=== PATIENT | female | born 1975 | race Caucasian/White ===

== ENCOUNTER 2019-07-26 14:29 | Observation (INO) ==
[2019-07-26 16:47] VITALS: BMI 20.5
[2019-07-26] MEDS ORDERED: ZOFRAN INJ 4 MG VIAL IVP PRN (18:05)
[2019-07-26 18:29] LABS: BASOPHILS % (AUTO) 0.1 % (0.2-1.0); EOSINOPHILS % (AUTO) 0.2 % (0.9-2.9); HEMATOCRIT 40.9 % (36.0-47.0); LYMPHOCYTES # (AUTO) 1.5 X10^3/uL (1.3-2.9); LYMPHOCYTES % (AUTO) 9.3 % (21.0-51.0); MEAN CORPUSCULAR HEMOGLOBIN 30.2 pg (27.0-34.0); MEAN CORPUSCULAR HGB CONC 34.2 g/dL (33.0-35.0); MEAN CORPUSCULAR VOLUME 88.2 fL (80.0-100.0); MEAN PLATELET VOLUME 7.3 fL (7.4-11.0); MONOCYTES # (AUTO) 0.9 x10^3/uL (0.3-0.8); MONOCYTES % (AUTO) 5.6 % (0.0-13.0); NEUTROPHILS # (AUTO) 13.6 x10^3/uL (2.2-4.8); NEUTROPHILS % (AUTO) 84.8 % (42.0-75.0); PLATELET COUNT 356 X10^3/uL (150.0-450.0); RED BLOOD COUNT 4.64 X10^6/uL (3.5-5.4); RED CELL DISTRIBUTION WIDTH 12.9 % (11.6-16.5)
[2019-07-26 18:58] LABS: ALANINE AMINOTRANSFERASE 20 Units/L (12-78); ALBUMIN 4.1 g/dL (3.4-5.0); ALKALINE PHOSPHATASE 64 Units/L (46-116); ASPARTATE AMINO TRANSFERASE 19 Units/L (15-37); BLOOD UREA NITROGEN 11 mg/dL (7-18); CALCIUM 9.8 mg/dL (8.5-10.1); CHLORIDE 105 mmol/L (98-107); CKMB % 2.7 % (<4); CREATINE KINASE 64 Units/L (26-192); CREATINE KINASE MB 1.7 ng/mL (0-4.0); CREATININE 0.76 mg/dL (0.55-1.02); SODIUM 140 mmol/L (136-145); TOTAL PROTEIN 7.7 g/dL (6.4-8.2); TROPONIN I < 0.02 ng/mL (0-1.5); eGFR NON BLACK RACES > 60 (>60)
[2019-07-26] MEDS: NS 1000 ML 1,000 ML IV SCH (19:00)
--- NOTE | 2019-07-26 19:40 | RAD ---
HISTORY: Diarrhea Study: Frontal view of the chest, flat and upright views of the abdomen Comparison: None. Findings: Cardiomediastinal silhouette is normal in size. No focal consolidations, pleural effusions or pneumothorax. Osseous structures are without acute abnormality. Flat and upright views of the abdomen demonstrates a normal bowel gas pattern. No free air. No abnormal calcifications or abnormal soft tissue shadows. No acute bony abnormalities. IMPRESSION: 1. No acute cardiopulmonary disease. 2. No evidence for acute abdominal pathology. Reported By:
[2019-07-26 21:12] LABS: BILIRUBIN,URINE NEGATIVE (NEGATIVE); BLOOD/HEMOGLOBIN,URINE 1+ (NEGATIVE); GLUCOSE, URINE NEGATIVE (NEGATIVE); KETONES,URINE NEGATIVE (NEGATIVE); LEUKOCYTE ESTERASE ,URINE NEGATIVE (NEGATIVE); NITRITES,URINE NEGATIVE (NEGATIVE); PH,URINE 6.5 (5.0 - 8.0); PROTEIN,URINE 1+ (NEGATIVE); UROBILINOGEN,URINE NORMAL (NORMAL)
[2019-07-26 21:15] LABS: APPEARANCE,URINE CLEAR (CLEAR); COLOR,URINE YELLOW (YELLOW)
[2019-07-26 21:16] LABS: BACTERIA,URINE NEGATIVE /HPF (NEGATIVE); RBC,URINE 0-2 /HPF (0-3); SQUAMOUS EPITHELIAL CELL,UR FEW /HPF (NEGATIVE)
[2019-07-26 21:18] LABS: HYALINE CASTS, URINE FEW /LPF (NEGATIVE)
[2019-07-26 23:00] LABS: CKMB % 3.8 % (<4); CREATINE KINASE 115 Units/L (26-192); TROPONIN I < 0.02 ng/mL (0-1.5)
[2019-07-26 23:03] LABS: CRYPTOSPORIDIUM PARVUM ANTIGEN NEGATIVE (NEGATIVE); GIARDIA LAMBLIA ANTIGEN NEGATIVE (NEGATIVE)
[2019-07-26 23:06] LABS: CREATINE KINASE MB 4.4 ng/mL (0-4.0)
[2019-07-27 02:27] LABS: CKMB % 2.8 % (<4); CREATINE KINASE 39 Units/L (26-192); CREATINE KINASE MB 1.1 ng/mL (0-4.0); TROPONIN I < 0.02 ng/mL (0-1.5)
[2019-07-27] MEDS: NS 1000 ML 1,000 ML IV SCH ×2 (03:42→11:51)
[2019-07-27 05:16] LABS: BASOPHILS # (AUTO) 0.1 X10^3/uL (0.0-0.1); BASOPHILS % (AUTO) 0.5 % (0.2-1.0); EOSINOPHILS # (AUTO) 0.1 x10^3/uL (0.0-0.2); EOSINOPHILS % (AUTO) 0.7 % (0.9-2.9); HEMATOCRIT 36.8 % (36.0-47.0); HEMOGLOBIN 12.5 g/dL (12.0-16.0); LYMPHOCYTES # (AUTO) 2.1 X10^3/uL (1.3-2.9); MEAN CORPUSCULAR HEMOGLOBIN 30.4 pg (27.0-34.0); MEAN CORPUSCULAR HGB CONC 34.1 g/dL (33.0-35.0); MEAN CORPUSCULAR VOLUME 89.3 fL (80.0-100.0); MEAN PLATELET VOLUME 7.6 fL (7.4-11.0); MONOCYTES # (AUTO) 0.5 x10^3/uL (0.3-0.8); MONOCYTES % (AUTO) 5.3 % (0.0-13.0); NEUTROPHILS # (AUTO) 7.2 x10^3/uL (2.2-4.8); NEUTROPHILS % (AUTO) 72.5 % (42.0-75.0); PLATELET COUNT 270 X10^3/uL (150.0-450.0); RED BLOOD COUNT 4.12 X10^6/uL (3.5-5.4); WHITE BLOOD COUNT 9.9 X10^3/uL (3.6-10.0)
[2019-07-27 05:30] LABS: ALANINE AMINOTRANSFERASE 17 Units/L (12-78); ALBUMIN 3.1 g/dL (3.4-5.0); ALKALINE PHOSPHATASE 46 Units/L (46-116); ASPARTATE AMINO TRANSFERASE 15 Units/L (15-37); BLOOD UREA NITROGEN 14 mg/dL (7-18); CALCIUM 8.6 mg/dL (8.5-10.1); CARBON DIOXIDE 28.3 mmol/L (21-32); CHLORIDE 109 mmol/L (98-107); COR CA(FOR HYPOALB) 9.3 mg/dL (8.5-10.1); CREATININE 0.75 mg/dL (0.55-1.02); SODIUM 142 mmol/L (136-145); TOTAL PROTEIN 5.9 g/dL (6.4-8.2); eGFR NON BLACK RACES > 60 (>60)
--- NOTE | 2019-07-27 10:28 | DR.CARTERS ---
Short Stay Summary - Admission Date Date of Admission: 07/26/19 - Discharge Date Discharge Date: 07/27/19 - Admission Diagnoses (1) Dizziness Status: Acute (2) Nausea and vomiting Status: Acute (3) Diarrhea Status: Acute - Hospital Course Hospital Course: PRESENTED TO THE OFFICE WITH COMPLAINTS SEVERE DIZZINESS, NAUSEA, VOMITING, AND DIARRHEA. SHE HAD BEEN TAKING MECLIZINE AT HOME WITHOUT IMPROVEMENT IN SYMPTOMS. SHE WAS ADMITTED FOR FURTHER EVALUATION AND TREATMENT. ON ARRIVAL, VITALS WERE 98.2-96-18-98%-119/82. LABS WERE OBTAINED. ABNORMAL LAB VALUES INCLUDE THE FOLLOWING: WBC 16.0, C-DIFF TOX B GENE POSITIVE. URINALYSIS IS NEGATIVE. URINE AND STOOL CULTURES ARE PENDING. AN ABDOMINAL CT WS OBTAINED AND REVEALED: No acute cardiopulmonary disease. No evidence for acute abdominal pathology. EKG REVEALED: SINUS RHYTHM WITH HR 82. WE PLAN TO OBTAIN A BRAIN CT. WE STARTED NORMAL SALINE AT 125ML/HR AND ZOFRAN 4MG IV Q4H PRN. OTHERWISE, WE PLANNED TO FOLLOW UP WITH AM LABS AND CONTINUE TO MONITOR. ON THE MORNING FOLLOWING ADMISSION, PATIENT IS ALERT AND ORIENTED, SITTING UP IN BED ON MORNING ROUNDS. SHE DENIES WEAKNESS, DIZZINESS, VOMITING, OR DIARRHEA THIS MORNING. ON EXAMINATION, HEART IS REGULAR IN RATE AND RHYTHM. BILATERAL LUNGS ARE CLEAR TO AUSCULTATION. ABDOMEN IS FLAT, SOFT, AND NON-TENDER WITH NORMAL BOWEL SOUNDS NOTED IN ALL QUADRANTS. HER VITALS THIS MORNING ARE: 98.5-69-18-97%-85/50. LABS WERE OBTAINED. ABNORMAL LAB VALUES INCLUDE THE FOLLOWING: - Discharge Medications Discharge Medications: Home Medication List lisdexamfetamine [Vyvanse] 60 mg PO DAILY 07/26/19 [History] meclizine 25 mg PO HS 07/26/19 [History] montelukast 10 mg PO DAILY 07/26/19 [History] nystatin 5 ml PO QID 07/26/19 [History] temazepam 30 mg PO HS 07/26/19 [History] Prescriptions: Prescription drug monitoring program results: PDMP was not reviewed - Discharge Plan Disposition: HOME, SELF-CARE Condition: Stable - Follow up/Referrals Follow up/Referrals: Gaetano Sorto [Primary Care Provider] - 1 WEEK - Instructions
[2019-07-27 12:07] VITALS: BP 116/65
--- NOTE | 2019-07-27 13:56 | CT ---
HISTORY: Dizziness Study: CT brain without contrast Comparison: None Technique: Multiple axial images of the brain were obtained from the skull base to the vertex without administration of IV contrast. Findings: No acute intraparenchymal hemorrhage or mass can be identified. No extra-axial fluid collections are seen. No alteration in the attenuation of the brain parenchyma can be identified to suggest acute or subacute ischemic change. The ventricular system is symmetric and nondilated. If symptoms or clinical concern persist recommend continued follow-up for further evaluation. IMPRESSION: 1. No acute intracranial process can be identified. Reported By:
== END 2019-07-27 15:40 | disposition home or self-care (01) ==
LOC: MED/SURG
PROVIDERS: ADMIT Internal Medicine; ATTEND Internal Medicine
DX: R42 Dizziness and giddiness; R19.7 Diarrhea, unspecified; R11.2 Nausea with vomiting, unspecified; E86.0 Dehydration
CPT/HCPCS: 36415; 70450; 74022; 80053; 81001; 82270; 82550; 82553; 83630; 84484; 85025; 87045; 87086; 87324; 87328; 87329; 87338; 87427; 87449; 87493; 87899; 93005; 94760; 96367; A4216; A4222; G0378; J7030

== ENCOUNTER 2019-08-02 11:00 | Observation (INO) ==
[2019-08-02] MEDS ORDERED: ZOFRAN INJ 4 MG VIAL IVP PRN (15:02)
[2019-08-02 15:28] LABS: BASOPHILS % (AUTO) 0.2 % (0.2-1.0); EOSINOPHILS # (AUTO) 0.2 x10^3/uL (0.0-0.2); EOSINOPHILS % (AUTO) 0.8 % (0.9-2.9); HEMATOCRIT 41.2 % (36.0-47.0); HEMOGLOBIN 13.9 g/dL (12.0-16.0); LYMPHOCYTES # (AUTO) 1.1 X10^3/uL (1.3-2.9); LYMPHOCYTES % (AUTO) 5.7 % (21.0-51.0); MEAN CORPUSCULAR HEMOGLOBIN 29.6 pg (27.0-34.0); MEAN CORPUSCULAR HGB CONC 33.8 g/dL (33.0-35.0); MEAN CORPUSCULAR VOLUME 87.6 fL (80.0-100.0); MEAN PLATELET VOLUME 7.5 fL (7.4-11.0); MONOCYTES # (AUTO) 1.3 x10^3/uL (0.3-0.8); MONOCYTES % (AUTO) 6.5 % (0.0-13.0); NEUTROPHILS # (AUTO) 17.4 x10^3/uL (2.2-4.8); NEUTROPHILS % (AUTO) 86.8 % (42.0-75.0); PLATELET COUNT 316 X10^3/uL (150.0-450.0); RED BLOOD COUNT 4.71 X10^6/uL (3.5-5.4); RED CELL DISTRIBUTION WIDTH 12.8 % (11.6-16.5); WHITE BLOOD COUNT 20.1 X10^3/uL (3.6-10.0)
[2019-08-02 15:39] LABS: ALANINE AMINOTRANSFERASE 21 Units/L (12-78); ALKALINE PHOSPHATASE 67 Units/L (46-116); ASPARTATE AMINO TRANSFERASE 18 Units/L (15-37); BLOOD UREA NITROGEN 13 mg/dL (7-18); CALCIUM 9.3 mg/dL (8.5-10.1); CARBON DIOXIDE 26.7 mmol/L (21-32); CHLORIDE 103 mmol/L (98-107); CREATININE 1.08 mg/dL (0.55-1.02); SODIUM 140 mmol/L (136-145); TOTAL PROTEIN 7.4 g/dL (6.4-8.2); eGFR NON BLACK RACES 58 (>60)
[2019-08-02] MEDS: NS 1000 ML 1,000 ML IV SCH ×2 (15:56→22:06)
[2019-08-02 17:02] LABS: BILIRUBIN,URINE NEGATIVE (NEGATIVE); BLOOD/HEMOGLOBIN,URINE 1+ (NEGATIVE); GLUCOSE, URINE NEGATIVE (NEGATIVE); KETONES,URINE NEGATIVE (NEGATIVE); LEUKOCYTE ESTERASE ,URINE NEGATIVE (NEGATIVE); NITRITES,URINE NEGATIVE (NEGATIVE); PROTEIN,URINE 1+ (NEGATIVE); UROBILINOGEN,URINE NORMAL (NORMAL)
[2019-08-02 17:03] LABS: APPEARANCE,URINE HAZY (CLEAR); COLOR,URINE YELLOW (YELLOW)
[2019-08-02 17:08] LABS: BACTERIA,URINE TRACE /HPF (NEGATIVE); MUCUS,URINE FEW /HPF (NEGATIVE); SQUAMOUS EPITHELIAL CELL,UR MODERATE /HPF (NEGATIVE)
[2019-08-02 17:18] VITALS: BMI 20.5
[2019-08-02] MEDS: CIPRO IV 400 MG PREMIX* 400 MG/200 ML IV.SOLN. IV SCH (20:52)
[2019-08-02 20:53] LABS: CRYPTOSPORIDIUM PARVUM ANTIGEN NEGATIVE (NEGATIVE); GIARDIA LAMBLIA ANTIGEN NEGATIVE (NEGATIVE)
[2019-08-02] MEDS: FLAGYL IV PREMIX 500 MG BAG 500 MG/100 ML BAG IV SCH (22:02)
[2019-08-03] MEDS: FLAGYL IV PREMIX 500 MG BAG 500 MG/100 ML BAG IV SCH ×3 (05:06→22:08)
[2019-08-03 05:25] LABS: BASOPHILS % (AUTO) 0.3 % (0.2-1.0); EOSINOPHILS # (AUTO) 0.2 x10^3/uL (0.0-0.2); EOSINOPHILS % (AUTO) 1.9 % (0.9-2.9); LYMPHOCYTES # (AUTO) 1.2 X10^3/uL (1.3-2.9); LYMPHOCYTES % (AUTO) 9.8 % (21.0-51.0); MEAN CORPUSCULAR HEMOGLOBIN 30.2 pg (27.0-34.0); MEAN CORPUSCULAR HGB CONC 34.1 g/dL (33.0-35.0); MEAN CORPUSCULAR VOLUME 88.5 fL (80.0-100.0); MEAN PLATELET VOLUME 8.4 fL (7.4-11.0); MONOCYTES # (AUTO) 0.9 x10^3/uL (0.3-0.8); NEUTROPHILS # (AUTO) 10.1 x10^3/uL (2.2-4.8); PLATELET COUNT 255 X10^3/uL (150.0-450.0); RED BLOOD COUNT 3.73 X10^6/uL (3.5-5.4); RED CELL DISTRIBUTION WIDTH 12.6 % (11.6-16.5); WHITE BLOOD COUNT 12.4 X10^3/uL (3.6-10.0)
[2019-08-03 05:43] LABS: ALANINE AMINOTRANSFERASE 16 Units/L (12-78); ALBUMIN 2.7 g/dL (3.4-5.0); ALKALINE PHOSPHATASE 60 Units/L (46-116); ASPARTATE AMINO TRANSFERASE 14 Units/L (15-37); BLOOD UREA NITROGEN 10 mg/dL (7-18); CALCIUM 8.1 mg/dL (8.5-10.1); CARBON DIOXIDE 25.4 mmol/L (21-32); CHLORIDE 107 mmol/L (98-107); COR CA(FOR HYPOALB) 9.1 mg/dL (8.5-10.1); CREATININE 0.66 mg/dL (0.55-1.02); HEMOGLOBIN 11.3 g/dL (12.0-16.0); SODIUM 140 mmol/L (136-145); TOTAL PROTEIN 5.6 g/dL (6.4-8.2); eGFR NON BLACK RACES > 60 (>60)
[2019-08-03 07:28] LABS: AMYLASE 42 Units/L (25-115); LIPASE 93 Units/L (73-393)
[2019-08-03] MEDS: CIPRO IV 400 MG PREMIX* 400 MG/200 ML IV.SOLN. IV SCH (08:48)
[2019-08-03] MEDS: NS 1000 ML 1,000 ML IV SCH ×2 (08:49→17:49)
--- NOTE | 2019-08-03 09:52 | US ---
History: Abdominal pain Study: Ultrasound of the right upper quadrant of the abdomen Comparison: None Findings: The gallbladder is mildly distended in size without wall thickening or stone or sludge. The common hepatic duct measures 1.8 mm diameter. The liver is normal in size without mass. There is normal echogenicity. There is appropriate flow in the hepatic veins in the portal vein. The right kidney measures 10.5 cm length with cortical thickness of 1.38 cm. Resistive index is 0.66. There is no hydronephrosis or mass. The visualized pancreas is unremarkable. The IVC is patent. No free fluid is demonstrated. Graph there is no aortic aneurysm. Impression: Negative, no acute disease demonstrated Reported By:
--- NOTE | 2019-08-03 10:14 | RAD ---
History: Elevated white blood cell count Study: Portable AP chest Comparison: July 26, 2019 Findings: The lungs are clear and the heart and mediastinum are unremarkable. There is no edema or effusion or congestion. No bony abnormality is demonstrated. Impression: No evidence for active cardiopulmonary disease Reported By:
[2019-08-03] MEDS ORDERED: DIPRIVAN VIAL 20 ML ONE (10:16)
[2019-08-03] MEDS ORDERED: QUELICIN (OR ANECTINE) ONE (11:01)
[2019-08-03] MEDS ORDERED: DIPRIVAN VIAL ONE ×2 (11:01→11:19)
[2019-08-03] MEDS ORDERED: ZOFRAN INJ 4 MG VIAL ONE (11:01)
[2019-08-03] MEDS ORDERED: ROBINUL ONE (11:01)
[2019-08-03] MEDS ORDERED: NEOSTIGMINE INJ ONE (11:01)
[2019-08-03] MEDS ORDERED: NORCURON INJ 10 MG VIAL ONE (11:01)
[2019-08-03] MEDS ORDERED: SUPRANE ONE (11:01)
[2019-08-03] MEDS ORDERED: VERSED ONE (11:01)
[2019-08-03] MEDS ORDERED: MORPHINE SULFATE INJ 2 MG INJ IVP PRN (13:35)
--- NOTE | 2019-08-03 16:12 | CT ---
CT abdomen and pelvis with contrast Indication: Abdominal pain Comparison: None available Technique: Multiple axial images of the abdomen and pelvis were obtained from the lung bases to the pubic symphysis after the administration of IV contrast. Coronal and sagittal reformatted images were also provided. Dose reduction techniques including automated exposure control (AEC) and adjustment of mA and kV were utilized. Findings: The lung bases demonstrate an approximate 6 mm subpleural nodule on axial image 3 within the right lower lobe. There is mild scarring within the periphery of both lung bases. There is mild intrahepatic and extrahepatic bile duct dilatation to the level the ampulla. No obstructing stone or mass identified. The gallbladder is without evidence of stone or pericholecystic stranding. No focal hepatic lesion. There is a lobulated cystic lesion potentially representing a epithelial cyst or vascular malformation within the inferior spleen. The pancreas and adrenal glands are normal. Neither kidney demonstrates evidence of nephrolithiasis, hydronephrosis or mass. The the appendix is mildly dilated, inflamed with surrounding inflammatory change consistent acute appendicitis. There is a small peripherally enhancing cyst representing a corpus luteal or hemorrhagic cyst within the right adnexa. Urinary bladder is normal. The rectum and colon are unremarkable. Upper GI tract is normal. Trace amount of pelvic free fluid. Abdominal aorta is normal in caliber. Impression: 1. Inflamed, mildly dilated appendix consistent acute appendicitis. No free air or localizing fluid collection identified to suggest perforation. Surgical consultation is recommended. 2. Mild intrahepatic and extrahepatic bile duct dilatation is abnormal, correlation with patient history and cholestatic function test is recommended. No obstructing stone or mass identified. 3. Small lobulated cystic lesion within the inferior spleen likely represents a small epithelial cyst or vascular malformation. 4. A 6 mm nodular opacity within the subpleural right lower lobe, follow-up chest CT in 6-12 months is recommended. 5. Refer to above for additional incidental, nonacute findings. IMPRESSION: Reported By:
[2019-08-03] MEDS ORDERED: FENTANYL INJ 250 mcg ONE (19:31)
[2019-08-03] MEDS ORDERED: ANCEF VIAL 1 GRAM ONE (19:47)
[2019-08-03] MEDS ORDERED: LR 1000 ML IV 1,000 ML IV ONE (19:47)
[2019-08-03] MEDS ORDERED: ZOFRAN INJ 4 MG VIAL IVP PRN (19:50)
[2019-08-03] MEDS ORDERED: BENADRYL INJ 50 MG VIAL IVP PRN (19:50)
[2019-08-03] MEDS ORDERED: PHENERGAN INJ 25 MG IM PRN (19:50)
[2019-08-03] MEDS ORDERED: REGLAN INJ 10 MG VIAL IVP PRN (19:50)
[2019-08-03] MEDS ORDERED: BACTROBAN TOPICAL OINT ONE (20:06)
[2019-08-03] MEDS ORDERED: DILAUDID INJ ONE (21:14)
[2019-08-03] MEDS: DILAUDID INJ IVP PRN ×4 (21:15→21:30)
--- NOTE | 2019-08-03 21:27 | OR.IMMED ---
Immediate Post-Op Note - Immediate Post-Op Note Pre-Op Diagnosis: acute appendicitis Post-Op Diagnosis: acute appendicitis with scarring and adhesions to the Rt adnexa and pelvis . small indirect Rt inguinal hernia . Surgeon/Project Technician: Erica Specimens Removed: acute appendix. Estimated Blood Loss: 10 cc Drains: Ovidio San Condition: Stable
[2019-08-03] MEDS ORDERED: DILAUDID INJ IVP PRN (21:28)
[2019-08-03] MEDS: PROTONIX INJ 40 MG VIAL IVP SCH (22:08)
[2019-08-03] MEDS: D5 1/2 NS 1000 ML 1,000 ML IV SCH (22:08)
[2019-08-03] MEDS: RESTORIL CAP 30 MG PO SCH (22:15)
[2019-08-03] MEDS: ZOSYN VIAL 3.375 GRAMS 3.375 G in NS 100 ML IV + SPIKE MINIBAG* 100 ML IV SCH ×2 (23:09→23:10)
[2019-08-04] MEDS: FLAGYL IV PREMIX 500 MG BAG 500 MG/100 ML BAG IV SCH ×3 (05:08→21:27)
[2019-08-04 05:30] LABS: BASOPHILS # (AUTO) 0.1 X10^3/uL (0.0-0.1); BASOPHILS % (AUTO) 0.6 % (0.2-1.0); EOSINOPHILS # (AUTO) 0.2 x10^3/uL (0.0-0.2); EOSINOPHILS % (AUTO) 1.6 % (0.9-2.9); HEMATOCRIT 32.2 % (36.0-47.0); HEMOGLOBIN 11.3 g/dL (12.0-16.0); LYMPHOCYTES # (AUTO) 1.1 X10^3/uL (1.3-2.9); LYMPHOCYTES % (AUTO) 11.8 % (21.0-51.0); MEAN CORPUSCULAR VOLUME 88.5 fL (80.0-100.0); MEAN PLATELET VOLUME 8.7 fL (7.4-11.0); MONOCYTES # (AUTO) 0.8 x10^3/uL (0.3-0.8); MONOCYTES % (AUTO) 8.3 % (0.0-13.0); NEUTROPHILS # (AUTO) 7.2 x10^3/uL (2.2-4.8); NEUTROPHILS % (AUTO) 77.7 % (42.0-75.0); PLATELET COUNT 255 X10^3/uL (150.0-450.0); RED BLOOD COUNT 3.64 X10^6/uL (3.5-5.4); RED CELL DISTRIBUTION WIDTH 12.6 % (11.6-16.5); WHITE BLOOD COUNT 9.3 X10^3/uL (3.6-10.0)
[2019-08-04 05:40] LABS: ALANINE AMINOTRANSFERASE 13 Units/L (12-78); ALBUMIN 2.6 g/dL (3.4-5.0); ALKALINE PHOSPHATASE 47 Units/L (46-116); ASPARTATE AMINO TRANSFERASE 13 Units/L (15-37); BLOOD UREA NITROGEN 2 mg/dL (7-18); CALCIUM 8.5 mg/dL (8.5-10.1); CHLORIDE 106 mmol/L (98-107); COR CA(FOR HYPOALB) 9.6 mg/dL (8.5-10.1); COR NA(FOR HYPERGLY) 141 mmol/L (136-145); CREATININE 0.57 mg/dL (0.55-1.02); SODIUM 141 mmol/L (136-145); TOTAL PROTEIN 5.7 g/dL (6.4-8.2); eGFR NON BLACK RACES > 60 (>60)
[2019-08-04] MEDS: ZOSYN VIAL 3.375 GRAMS 3.375 G in NS 100 ML IV + SPIKE MINIBAG* 100 ML IV SCH ×3 (05:53→21:45)
[2019-08-04] MEDS: PROTONIX INJ 40 MG VIAL IVP SCH ×2 (08:54→20:35)
[2019-08-04] MEDS: PERCOCET TAB 5/325 MG PO PRN (10:07)
[2019-08-04] MEDS ORDERED: NS 1000 ML 1,000 ML IV ONE (11:10)
--- NOTE | 2019-08-04 13:08 | DR.PROGNOT ---
Hospital Progress Notes - Progress Note for Day of: Progress Note Date: 08/04/19 - Chief Complaint Chief Complaint: post op lap appendectomy . feeling better today . havin incisional pain . no nausea or vomiting. UNA is draining small amount , serosamguineous fluid . afebrile and stable. - Past Medical Family Social History Past Med/Fam/Surg Hx: No changes since H&P Allergies: Allergies No Known Drug Allergies Allergy (Verified 08/02/19 15:00) - Review Of Systems ROS: No change since H&P - Vital Signs Vital Signs: Temperature 98.6 F Pulse Rate [Right Brachial] 68 Pulse Rate [Left Brachial] 88 Pulse Rate 80 Respiratory Rate 13 Blood Pressure [Right Arm] 88/51 Blood Pressure [Left Arm] 91/55 Blood Pressure 110/61 O2 Sat by Pulse Oximetry 99 - Physical Exam Oriented: Normal Eyes: Normal Ear: Normal Nose: Normal Throat: Normal Respiratory: Normal Cardiovascular: Normal GI:Auscultation: Normal GI:Palpation: Normal GI: Tenderness: Diffuse (soft abdomen with diffuse tenderness , BS+) Skin: Normal Musculoskeletal: Normal Psychiatric: Anxiety Mood Description: Calm Speech Pattern: Clear, Appropriate - Laboratory and Diagnostics Result Diagrams: 08/04/19 04:43 08/04/19 04:43 Labs: 08/02/19 16:30 Blood Blood Culture - Preliminary 08/02/19 16:23 Blood Blood Culture - Preliminary 08/02/19 20:10 Stool Stool Culture - Preliminary 08/02/19 20:10 Stool - Final Laboratory WBC 9.3 X10^3/uL (3.6-10.0) 08/04/19 04:43 RBC 3.64 X10^6/uL (3.5-5.4) 08/04/19 04:43 Hgb 11.3 g/dL (12.0-16.0) L 08/04/19 04:43 Hct 32.2 % (36.0-47.0) L 08/04/19 04:43 MCV 88.5 fL (80.0-100.0) 08/04/19 04:43 MCH 31.0 pg (27.0-34.0) 08/04/19 04:43 MCHC 35.0 g/dL (33.0-35.0) 08/04/19 04:43 RDW 12.6 % (11.6-16.5) 08/04/19 04:43 Plt Count 255 X10^3/uL (150.0-450.0) 08/04/19 04:43 MPV 8.7 fL (7.4-11.0) 08/04/19 04:43 Neut % (Auto) 77.7 % (42.0-75.0) H 08/04/19 04:43 Lymph % (Auto) 11.8 % (21.0-51.0) L 08/04/19 04:43 [place] % (Auto) 8.3 % (0.0-13.0) 08/04/19 04:43 Eos % (Auto) 1.6 % (0.9-2.9) 08/04/19 04:43 Baso % (Auto) 0.6 % (0.2-1.0) 08/04/19 04:43 Neut # (Auto) 7.2 x10^3/uL (2.2-4.8) H 08/04/19 04:43 Lymph # (Auto) 1.1 X10^3/uL (1.3-2.9) L 08/04/19 04:43 [place] # (Auto) 0.8 x10^3/uL (0.3-0.8) 08/04/19 04:43 Eos # (Auto) 0.2 x10^3/uL (0.0-0.2) 08/04/19 04:43 Baso # (Auto) 0.1 X10^3/uL (0.0-0.1) 08/04/19 04:43 Absolute Nucleated RBC 0.0 /100WBC 08/04/19 04:43 Sodium 141 mmol/L (136-145) 08/04/19 04:43 Corrected Sodium 141 mmol/L (136-145) 08/04/19 04:43 Potassium 3.8 mmol/L (3.5-5.1) 08/04/19 04:43 Chloride 106 mmol/L (98-107) 08/04/19 04:43 Carbon Dioxide 25.0 mmol/L (21-32) 08/04/19 04:43 BUN 2 mg/dL (7-18) L 08/04/19 04:43 Creatinine 0.57 mg/dL (0.55-1.02) 08/04/19 04:43 Est GFR (MDRD) Af Amer > 60 (>60) 08/04/19 04:43 Est GFR (MDRD) Non-Af > 60 (>60) 08/04/19 04:43 Glucose 111 mg/dL (65-99) H 08/04/19 04:43 POC Glucose (mg/dL) 93 mg/dL (65-99) 08/03/19 11:38 Lactic Acid 0.9 mmol/L (0.4-2.0) 08/02/19 16:23 Calcium 8.5 mg/dL (8.5-10.1) 08/04/19 04:43 Corrected Calcium 9.6 mg/dL (8.5-10.1) 08/04/19 04:43 Magnesium 2.5 mg/dL (1.7-2.9) 08/02/19 15:15 Total Bilirubin 0.50 mg/dL (0.2-1.0) 08/04/19 04:43 AST 13 Units/L (15-37) L 08/04/19 04:43 ALT 13 Units/L (12-78) 08/04/19 04:43 Alkaline Phosphatase 47 Units/L (46-116) 08/04/19 04:43 Total Protein 5.7 g/dL (6.4-8.2) L 08/04/19 04:43 Albumin 2.6 g/dL (3.4-5.0) L 08/04/19 04:43 Globulin 3.1 g/dL (2.5-4.5) 08/04/19 04:43 Albumin/Globulin Ratio 0.8 Ratio (1.1-2.1) L 08/04/19 04:43 Amylase 42 Units/L (25-115) 08/03/19 04:33 Lipase 93 Units/L (73-393) 08/03/19 04:33 Specimen Type Clean catch urine 08/02/19 16:50 Urine Color Yellow (YELLOW) 08/02/19 16:50 Urine Appearance Hazy (CLEAR) 08/02/19 16:50 Urine pH 5.0 (5.0 - 8.0) 08/02/19 16:50 Ur Specific [place] 1.010 (1.000-1.030) 08/02/19 16:50 Urine Protein 1+ (NEGATIVE) 08/02/19 16:50 Urine Glucose (UA) Negative (NEGATIVE) 08/02/19 16:50 Urine Ketones Negative (NEGATIVE) 08/02/19 16:50 Urine Occult Blood 1+ (NEGATIVE) 08/02/19 16:50 Urine Nitrite Negative (NEGATIVE) 08/02/19 16:50 Urine Bilirubin Negative (NEGATIVE) 08/02/19 16:50 Urine Urobilinogen Normal (NORMAL) 08/02/19 16:50 Ur Leukocyte Esterase Negative (NEGATIVE) 08/02/19 16:50 Urine RBC 3-5 /HPF (0-3) A 08/02/19 16:50 Urine WBC 3-5 /HPF (0-5) 08/02/19 16:50 Ur Squamous Epith Cells Moderate /HPF (NEGATIVE) 08/02/19 16:50 Urine Bacteria Trace /HPF (NEGATIVE) 08/02/19 16:50 Urine Mucus Few /HPF (NEGATIVE) 08/02/19 16:50 Ur Culture Indicated? No/not indicated 08/02/19 16:50 Stool Description 12g,dk brn,unformed 08/02/19 20:10 Stool Description 12g,dk brn,unformed 08/02/19 20:10 Stl Occult Blood (IFOB) Positive (NEGATIVE) A 08/02/19 20:10 Stool for White Cells Negative (NEGATIVE) 08/02/19 20:10 Stl C. diff Tox B Gene Positive (NEGATIVE) A 08/02/19 20:10 Stl C. diff 027-NAP1-BI Negative (NEGATIVE) 08/02/19 20:10 C. difficile Toxin A&B Negative (NEGATIVE) 08/02/19 20:10 Cryptosporid parvum Ag Negative (NEGATIVE) 08/02/19 20:10 Giardia lamblia Ag Negative (NEGATIVE) 08/02/19 20:10 Tissue Pathology To follow 08/03/19 20:50 - Assessment and Plan 1: post op Lap appendectomy for acute appendicitis . on full liquid diet now . same IV ATB . OOB ,. will keep UNA today .
[2019-08-04] MEDS: D5 1/2 NS 1000 ML 1,000 ML IV SCH (13:50)
[2019-08-04] MEDS: RESTORIL CAP 30 MG PO SCH (23:05)
[2019-08-05] MEDS: D5 1/2 NS 1000 ML 1,000 ML IV SCH ×3 (00:26→23:40)
[2019-08-05] MEDS: FLAGYL IV PREMIX 500 MG BAG 500 MG/100 ML BAG IV SCH ×3 (05:19→21:40)
[2019-08-05] MEDS: ZOSYN VIAL 3.375 GRAMS 3.375 G in NS 100 ML IV + SPIKE MINIBAG* 100 ML IV SCH ×3 (05:20→21:40)
[2019-08-05] MEDS: PERCOCET TAB 5/325 MG PO PRN ×2 (05:20→23:41)
[2019-08-05 05:55] LABS: BASOPHILS % (AUTO) 0.6 % (0.2-1.0); EOSINOPHILS # (AUTO) 0.3 x10^3/uL (0.0-0.2); EOSINOPHILS % (AUTO) 5.9 % (0.9-2.9); HEMATOCRIT 34.7 % (36.0-47.0); HEMOGLOBIN 11.9 g/dL (12.0-16.0); LYMPHOCYTES # (AUTO) 1.3 X10^3/uL (1.3-2.9); LYMPHOCYTES % (AUTO) 23.7 % (21.0-51.0); MEAN CORPUSCULAR HEMOGLOBIN 30.3 pg (27.0-34.0); MEAN CORPUSCULAR HGB CONC 34.3 g/dL (33.0-35.0); MEAN CORPUSCULAR VOLUME 88.6 fL (80.0-100.0); MONOCYTES # (AUTO) 0.5 x10^3/uL (0.3-0.8); MONOCYTES % (AUTO) 9.3 % (0.0-13.0); NEUTROPHILS # (AUTO) 3.2 x10^3/uL (2.2-4.8); NEUTROPHILS % (AUTO) 60.5 % (42.0-75.0); PLATELET COUNT 307 X10^3/uL (150.0-450.0); RED BLOOD COUNT 3.92 X10^6/uL (3.5-5.4); RED CELL DISTRIBUTION WIDTH 12.7 % (11.6-16.5); WHITE BLOOD COUNT 5.4 X10^3/uL (3.6-10.0)
[2019-08-05 06:15] LABS: ALANINE AMINOTRANSFERASE 13 Units/L (12-78); ALBUMIN 2.7 g/dL (3.4-5.0); ALKALINE PHOSPHATASE 50 Units/L (46-116); ASPARTATE AMINO TRANSFERASE 11 Units/L (15-37); BLOOD UREA NITROGEN 4 mg/dL (7-18); CARBON DIOXIDE 28.7 mmol/L (21-32); CHLORIDE 106 mmol/L (98-107); CREATININE 0.63 mg/dL (0.55-1.02); SODIUM 142 mmol/L (136-145); TOTAL PROTEIN 6.3 g/dL (6.4-8.2); eGFR NON BLACK RACES > 60 (>60)
[2019-08-05] MEDS ORDERED: K-DUR TAB 20 MEQ PO PRN (07:31)
[2019-08-05] MEDS ORDERED: MICRO K EXTEN CAP 10 MEQ PO PRN (07:31)
[2019-08-05] MEDS ORDERED: KLOR-CON PO PRN (07:31)
[2019-08-05] MEDS ORDERED: POTASSIUM CHLORIDE LIQ 20 MEQ UDC PO PRN (07:31)
[2019-08-05] MEDS ORDERED: POTASSIUM CHL 60 MEQ/NS 0.45% 500 ML IV PRN (07:31)
[2019-08-05] MEDS ORDERED: K-RIDER 10 MEQ/NS 100 ML 10 MEQ/100 ML BAG IV PRN (07:31)
[2019-08-05] MEDS ORDERED: MAGNESIUM SULFATE 1 GRAM/100 mL PREMIX 1 GM/100 ML BAG IV PRN (07:31)
[2019-08-05] MEDS ORDERED: POTASSIUM CHL 40 MEQ/NS 0.45% 500 ML IV PRN (07:31)
[2019-08-05] MEDS: PROTONIX INJ 40 MG VIAL IVP SCH ×2 (09:33→20:09)
--- NOTE | 2019-08-05 11:04 | DR.PROGNOT ---
Hospital Progress Notes - Progress Note for Day of: Progress Note Date: 08/05/19 - Chief Complaint Chief Complaint: post op lap appendectomy day 2. feeling better today . no nausea or vomiting. UNA was removed . afebrile and stable VS . - Past Medical Family Social History Past Med/Fam/Surg Hx: No changes since H&P Allergies: Allergies No Known Drug Allergies Allergy (Verified 08/02/19 15:00) - Review Of Systems ROS: No change since H&P - Vital Signs Vital Signs: Temperature 98.0 F Pulse Rate [Right Brachial] 64 Pulse Rate [Left Brachial] 62 Pulse Rate 80 Respiratory Rate 18 Blood Pressure [Right Arm] 95/48 Blood Pressure [Left Arm] 99/51 Blood Pressure 110/61 O2 Sat by Pulse Oximetry 100 - Physical Exam Oriented: Normal Eyes: Normal Ear: Normal Nose: Normal Throat: Normal Respiratory: Normal Cardiovascular: Normal GI:Auscultation: Normal GI:Palpation: Normal GI: Tenderness: Diffuse (soft abdomen with diffuse tenderness , BS+) Skin: Normal Musculoskeletal: Normal Psychiatric: Anxiety Mood Description: Calm Speech Pattern: Clear, Appropriate - Laboratory and Diagnostics Result Diagrams: 08/05/19 05:20 08/05/19 05:20 Labs: 08/02/19 20:10 Stool Stool Culture - Preliminary 08/02/19 20:10 Stool - Final 08/02/19 16:30 Blood Blood Culture - Preliminary 08/02/19 16:23 Blood Blood Culture - Preliminary Laboratory WBC 5.4 X10^3/uL (3.6-10.0) 08/05/19 05:20 RBC 3.92 X10^6/uL (3.5-5.4) 08/05/19 05:20 Hgb 11.9 g/dL (12.0-16.0) L 08/05/19 05:20 Hct 34.7 % (36.0-47.0) L 08/05/19 05:20 MCV 88.6 fL (80.0-100.0) 08/05/19 05:20 MCH 30.3 pg (27.0-34.0) 08/05/19 05:20 MCHC 34.3 g/dL (33.0-35.0) 08/05/19 05:20 RDW 12.7 % (11.6-16.5) 08/05/19 05:20 Plt Count 307 X10^3/uL (150.0-450.0) 08/05/19 05:20 MPV 8.0 fL (7.4-11.0) 08/05/19 05:20 Neut % (Auto) 60.5 % (42.0-75.0) 08/05/19 05:20 Lymph % (Auto) 23.7 % (21.0-51.0) 08/05/19 05:20 [place] % (Auto) 9.3 % (0.0-13.0) 08/05/19 05:20 Eos % (Auto) 5.9 % (0.9-2.9) H 08/05/19 05:20 Baso % (Auto) 0.6 % (0.2-1.0) 08/05/19 05:20 Neut # (Auto) 3.2 x10^3/uL (2.2-4.8) 08/05/19 05:20 Lymph # (Auto) 1.3 X10^3/uL (1.3-2.9) 08/05/19 05:20 [place] # (Auto) 0.5 x10^3/uL (0.3-0.8) 08/05/19 05:20 Eos # (Auto) 0.3 x10^3/uL (0.0-0.2) H 08/05/19 05:20 Baso # (Auto) 0.0 X10^3/uL (0.0-0.1) 08/05/19 05:20 Absolute Nucleated RBC 0.1 /100WBC 08/05/19 05:20 Sodium 142 mmol/L (136-145) 08/05/19 05:20 Corrected Sodium TNP 08/05/19 05:20 Potassium 3.3 mmol/L (3.5-5.1) L 08/05/19 05:20 Chloride 106 mmol/L (98-107) 08/05/19 05:20 Carbon Dioxide 28.7 mmol/L (21-32) 08/05/19 05:20 BUN 4 mg/dL (7-18) L 08/05/19 05:20 Creatinine 0.63 mg/dL (0.55-1.02) 08/05/19 05:20 Est GFR (MDRD) Af Amer > 60 (>60) 08/05/19 05:20 Est GFR (MDRD) Non-Af > 60 (>60) 08/05/19 05:20 Glucose 103 mg/dL (65-99) H 08/05/19 05:20 POC Glucose (mg/dL) 93 mg/dL (65-99) 08/03/19 11:38 Lactic Acid 0.9 mmol/L (0.4-2.0) 08/02/19 16:23 Calcium 9.0 mg/dL (8.5-10.1) 08/05/19 05:20 Corrected Calcium 10.0 mg/dL (8.5-10.1) 08/05/19 05:20 Magnesium 1.7 mg/dL (1.7-2.9) 08/05/19 05:20 Total Bilirubin 0.20 mg/dL (0.2-1.0) 08/05/19 05:20 AST 11 Units/L (15-37) L 08/05/19 05:20 ALT 13 Units/L (12-78) 08/05/19 05:20 Alkaline Phosphatase 50 Units/L (46-116) 08/05/19 05:20 Total Protein 6.3 g/dL (6.4-8.2) L 08/05/19 05:20 Albumin 2.7 g/dL (3.4-5.0) L 08/05/19 05:20 Globulin 3.6 g/dL (2.5-4.5) 08/05/19 05:20 Albumin/Globulin Ratio 0.8 Ratio (1.1-2.1) L 08/05/19 05:20 Amylase 42 Units/L (25-115) 08/03/19 04:33 Lipase 93 Units/L (73-393) 08/03/19 04:33 Specimen Type Clean catch urine 08/02/19 16:50 Urine Color Yellow (YELLOW) 08/02/19 16:50 Urine Appearance Hazy (CLEAR) 08/02/19 16:50 Urine pH 5.0 (5.0 - 8.0) 08/02/19 16:50 Ur Specific [place] 1.010 (1.000-1.030) 08/02/19 16:50 Urine Protein 1+ (NEGATIVE) 08/02/19 16:50 Urine Glucose (UA) Negative (NEGATIVE) 08/02/19 16:50 Urine Ketones Negative (NEGATIVE) 08/02/19 16:50 Urine Occult Blood 1+ (NEGATIVE) 08/02/19 16:50 Urine Nitrite Negative (NEGATIVE) 08/02/19 16:50 Urine Bilirubin Negative (NEGATIVE) 08/02/19 16:50 Urine Urobilinogen Normal (NORMAL) 08/02/19 16:50 Ur Leukocyte Esterase Negative (NEGATIVE) 08/02/19 16:50 Urine RBC 3-5 /HPF (0-3) A 08/02/19 16:50 Urine WBC 3-5 /HPF (0-5) 08/02/19 16:50 Ur Squamous Epith Cells Moderate /HPF (NEGATIVE) 08/02/19 16:50 Urine Bacteria Trace /HPF (NEGATIVE) 08/02/19 16:50 Urine Mucus Few /HPF (NEGATIVE) 08/02/19 16:50 Ur Culture Indicated? No/not indicated 08/02/19 16:50 Stool Description 12g,dk brn,unformed 08/02/19 20:10 Stool Description 12g,dk brn,unformed 08/02/19 20:10 Stl Occult Blood (IFOB) Positive (NEGATIVE) A 08/02/19 20:10 Stool for White Cells Negative (NEGATIVE) 08/02/19 20:10 Stl C. diff Tox B Gene Positive (NEGATIVE) A 08/02/19 20:10 Stl C. diff 027-NAP1-BI Negative (NEGATIVE) 08/02/19 20:10 C. difficile Toxin A&B Negative (NEGATIVE) 08/02/19 20:10 Cryptosporid parvum Ag Negative (NEGATIVE) 08/02/19 20:10 Giardia lamblia Ag Negative (NEGATIVE) 08/02/19 20:10 Tissue Pathology To follow 08/03/19 20:50 - Assessment and Plan 1: post op Lap appendectomy for acute appendicitis . on soft diet. same IV ATB . OOB ,. ok to D/C in am on PO Flagyl . will follow in 10 days .
[2019-08-05] MEDS: RESTORIL CAP 30 MG PO SCH (20:08)
[2019-08-06] MEDS: FLAGYL IV PREMIX 500 MG BAG 500 MG/100 ML BAG IV SCH (05:50)
[2019-08-06] MEDS: ZOSYN VIAL 3.375 GRAMS 3.375 G in NS 100 ML IV + SPIKE MINIBAG* 100 ML IV SCH (05:50)
[2019-08-06] MEDS: D5 1/2 NS 1000 ML 1,000 ML IV SCH (05:50)
[2019-08-06 06:11] LABS: BASOPHILS % (AUTO) 0.9 % (0.2-1.0); EOSINOPHILS # (AUTO) 0.3 x10^3/uL (0.0-0.2); HEMATOCRIT 36.5 % (36.0-47.0); HEMOGLOBIN 12.3 g/dL (12.0-16.0); LYMPHOCYTES # (AUTO) 1.4 X10^3/uL (1.3-2.9); LYMPHOCYTES % (AUTO) 27.9 % (21.0-51.0); MEAN CORPUSCULAR HEMOGLOBIN 29.9 pg (27.0-34.0); MEAN CORPUSCULAR HGB CONC 33.7 g/dL (33.0-35.0); MEAN CORPUSCULAR VOLUME 88.6 fL (80.0-100.0); MEAN PLATELET VOLUME 7.8 fL (7.4-11.0); MONOCYTES # (AUTO) 0.4 x10^3/uL (0.3-0.8); MONOCYTES % (AUTO) 8.6 % (0.0-13.0); NEUTROPHILS # (AUTO) 2.7 x10^3/uL (2.2-4.8); NEUTROPHILS % (AUTO) 55.6 % (42.0-75.0); PLATELET COUNT 351 X10^3/uL (150.0-450.0); RED BLOOD COUNT 4.12 X10^6/uL (3.5-5.4); RED CELL DISTRIBUTION WIDTH 12.5 % (11.6-16.5); WHITE BLOOD COUNT 4.9 X10^3/uL (3.6-10.0)
[2019-08-06 06:27] LABS: ALANINE AMINOTRANSFERASE 15 Units/L (12-78); ALBUMIN 2.7 g/dL (3.4-5.0); ALKALINE PHOSPHATASE 54 Units/L (46-116); ASPARTATE AMINO TRANSFERASE 13 Units/L (15-37); BLOOD UREA NITROGEN 5 mg/dL (7-18); CALCIUM 8.8 mg/dL (8.5-10.1); CARBON DIOXIDE 26.9 mmol/L (21-32); CHLORIDE 108 mmol/L (98-107); COR CA(FOR HYPOALB) 9.8 mg/dL (8.5-10.1); CREATININE 0.62 mg/dL (0.55-1.02); SODIUM 142 mmol/L (136-145); TOTAL PROTEIN 6.2 g/dL (6.4-8.2); eGFR NON BLACK RACES > 60 (>60)
[2019-08-06] MEDS: PROTONIX INJ 40 MG VIAL IVP SCH (08:14)
[2019-08-06 09:02] VITALS: BP 93/51
--- NOTE | 2019-09-17 11:39 | DR.UPDATE ---
H&P Update History and Physical Update: History and Physical reviewed and patient examined. Changes noted: Yes with the following: WAS SEEN IN THE OFFICE YESTERDAY FOR A HOSPITAL FOLLOW UP. SHE COMPLAINED OF PERSISTENT NAUSEA, VOMITING, AND ABDOMINIAL PAIN. SHE WAS ADMITTED FOR FURTHER EVALUATION AND TREATMENT. ON ADMISION, WE WILL OBTAIN A GALLBLADDER US AND AN ABDOMEN/PELVIS CT. WE WILL CONSULT WITH , TIRE SERVICE SUPERVISOR. ON ADMISSION, WE WILL START IV FLUIDS, IV ZOFRAN, CIPRO 400MG IV Q12H, FLAGYL 500MG IV Q8H. WE WILL OBTAIN LABS AND CONTINUE TO MONITOR. H&P Reviewed: Yes Patient was examined?: Yes
--- NOTE | 2019-09-17 17:18 | PCM.PROG ---
Progress Note - Progress Note for Day of Date of Exam: 08/04/19 - Subjective Subjective: WAS ADMITTED FOR PERSISTENT NAUSEA, VOMITING, AND ABDOMINAL PAIN. TODAY, SHE IS ALERT AND ORIENTED, LYING IN BED ON MORNING ROUNDS. SHE CONTINUES WITH COMPLAINTS OF ABDOMINAL PAIN, NAUSEA, AND VOMITING. HER VITALS THIS MORNING ARE: 98.3-62-13-98%-80/44. LABS WERE OBTAINED. ABNORMAL LAB VALUES INCLUDE THE FOLLOWING: HGB 11.3, HCT 32.2, BUN 2, GLUCOSE 111, AST 13, TOTAL PROTEIN 5.7, ALBUMIN 2.6. STOOLS ARE POSITIVE FOR OCCULT BLOOD AND C.DIFF TOXIN B GENE. BLOOD AND STOOL CULTURES ARE PENDING. A GALLBLADDER US WAS OBTAINED ON ADMISSION AND WAS NEGATIVE. AN ABDOMEN/PELVIS CT WAS OBTAINED AND REVEALED: Inflamed, mildly dilated appendix consistent acute appendicitis. No free air or localizing fluid collection identified to suggest perforation. Surgical consultation is recommended. Mild intrahepatic and extrahepatic bile duct dilatation is abnormal, correlation with patient history and cholestatic function test is recommended. No obstructing stone or mass identified. Small lobulated cystic lesion within the inferior spleen likely represents a small epithelial cyst or vascular malformation. A 6 mm nodular opacity within the subpleural right lower lobe, follow-up chest CT in 6-12 months is recommended. AN EGD WAS PERFORMED YESTERDAY AND REVEALED: The scope was passed easily up to descending duodenum which was well-visualized and was found to be normal. Bulb appears normal. Pylorus does not show any abnormality. Gastric antrum showed erosive gastritis and a small ulcer is noted. Small bowel and antral biopsies were taken. Gastric body and upon retroflexion fundus appeared normal. EG junction and distal esophagus showed esophagitis. Middle and upper esophagus appear normal. Hypopharynx appears normal. SHE IS CURRENTLY RECEIVING FLUIDS, IV ZOFRAN, CIPRO 400MG IV Q12H, FLAGYL 500MG IV Q8H, IV PROTONIX, IV MORPHINE, AND HOME MEDICATIONS WERE RESUMED. WE WILL CONTINUE WITH CURRENT PLAN OF CARE TODAY. OTHERWISE, WE WILL FOLLOW UP WITH AM LABS AND CONTINUE TO MONITOR. - Past Medical Family Social History Past Med/Fam/Surg Hx: No changes since H&P Allergies: Allergies No Known Drug Allergies Allergy (Verified 08/02/19 15:00) - Review of Systems ROS: No change since H&P - Vital Signs and I&O's Vital Signs: Temperature 98.3 F Pulse Rate [Right Brachial] 69 Pulse Rate [Left Brachial] 86 Pulse Rate 80 Respiratory Rate 18 Blood Pressure [Right Arm] 95/48 Blood Pressure [Left Arm] 93/51 Blood Pressure 110/61 O2 Sat by Pulse Oximetry 99 - Physical Exam Oriented: Normal Eyes: Normal Ear: Normal Nose: Normal Throat: Normal Respiratory: Normal Cardiovascular: Normal Auscultation: Bowel Sounds: Normal Palpation: Normal Tenderness: Diffuse (soft abdomen with diffuse tenderness , BS+) Skin: Normal Musculoskeletal: Normal Psychiatric: Anxiety Mood Description: Calm Speech Pattern: Clear, Appropriate - Laboratory and Diagnostics Result Diagrams: 08/06/19 05:47 08/06/19 05:47 Labs: 08/02/19 16:30 Blood Blood Culture - Final 08/02/19 16:23 Blood Blood Culture - Final 08/02/19 20:10 Stool Stool Culture - Final 08/02/19 20:10 Stool - Final Laboratory WBC 4.9 X10^3/uL (3.6-10.0) 08/06/19 05:47 RBC 4.12 X10^6/uL (3.5-5.4) 08/06/19 05:47 Hgb 12.3 g/dL (12.0-16.0) 08/06/19 05:47 Hct 36.5 % (36.0-47.0) 08/06/19 05:47 MCV 88.6 fL (80.0-100.0) 08/06/19 05:47 MCH 29.9 pg (27.0-34.0) 08/06/19 05:47 MCHC 33.7 g/dL (33.0-35.0) 08/06/19 05:47 RDW 12.5 % (11.6-16.5) 08/06/19 05:47 Plt Count 351 X10^3/uL (150.0-450.0) 08/06/19 05:47 MPV 7.8 fL (7.4-11.0) 08/06/19 05:47 Neut % (Auto) 55.6 % (42.0-75.0) 08/06/19 05:47 Lymph % (Auto) 27.9 % (21.0-51.0) 08/06/19 05:47 [place] % (Auto) 8.6 % (0.0-13.0) 08/06/19 05:47 Eos % (Auto) 7.0 % (0.9-2.9) H 08/06/19 05:47 Baso % (Auto) 0.9 % (0.2-1.0) 08/06/19 05:47 Neut # (Auto) 2.7 x10^3/uL (2.2-4.8) 08/06/19 05:47 Lymph # (Auto) 1.4 X10^3/uL (1.3-2.9) 08/06/19 05:47 [place] # (Auto) 0.4 x10^3/uL (0.3-0.8) 08/06/19 05:47 Eos # (Auto) 0.3 x10^3/uL (0.0-0.2) H 08/06/19 05:47 Baso # (Auto) 0.0 X10^3/uL (0.0-0.1) 08/06/19 05:47 Absolute Nucleated RBC 0.0 /100WBC 08/06/19 05:47 Sodium 142 mmol/L (136-145) 08/06/19 05:47 Corrected Sodium TNP 08/06/19 05:47 Potassium 3.7 mmol/L (3.5-5.1) 08/06/19 05:47 Chloride 108 mmol/L (98-107) H 08/06/19 05:47 Carbon Dioxide 26.9 mmol/L (21-32) 08/06/19 05:47 BUN 5 mg/dL (7-18) L 08/06/19 05:47 Creatinine 0.62 mg/dL (0.55-1.02) 08/06/19 05:47 Est GFR (MDRD) Af Amer > 60 (>60) 08/06/19 05:47 Est GFR (MDRD) Non-Af > 60 (>60) 08/06/19 05:47 Glucose 105 mg/dL (65-99) H 08/06/19 05:47 POC Glucose (mg/dL) 93 mg/dL (65-99) 08/03/19 11:38 Lactic Acid 0.9 mmol/L (0.4-2.0) 08/02/19 16:23 Calcium 8.8 mg/dL (8.5-10.1) 08/06/19 05:47 Corrected Calcium 9.8 mg/dL (8.5-10.1) 08/06/19 05:47 Magnesium 1.7 mg/dL (1.7-2.9) 08/05/19 05:20 Total Bilirubin 0.20 mg/dL (0.2-1.0) 08/06/19 05:47 AST 13 Units/L (15-37) L 08/06/19 05:47 ALT 15 Units/L (12-78) 08/06/19 05:47 Alkaline Phosphatase 54 Units/L (46-116) 08/06/19 05:47 Total Protein 6.2 g/dL (6.4-8.2) L 08/06/19 05:47 Albumin 2.7 g/dL (3.4-5.0) L 08/06/19 05:47 Globulin 3.5 g/dL (2.5-4.5) 08/06/19 05:47 Albumin/Globulin Ratio 0.8 Ratio (1.1-2.1) L 08/06/19 05:47 Amylase 42 Units/L (25-115) 08/03/19 04:33 Lipase 93 Units/L (73-393) 08/03/19 04:33 Specimen Type Clean catch urine 08/02/19 16:50 Urine Color Yellow (YELLOW) 08/02/19 16:50 Urine Appearance Hazy (CLEAR) 08/02/19 16:50 Urine pH 5.0 (5.0 - 8.0) 08/02/19 16:50 Ur Specific [place] 1.010 (1.000-1.030) 08/02/19 16:50 Urine Protein 1+ (NEGATIVE) 08/02/19 16:50 Urine Glucose (UA) Negative (NEGATIVE) 08/02/19 16:50 Urine Ketones Negative (NEGATIVE) 08/02/19 16:50 Urine Occult Blood 1+ (NEGATIVE) 08/02/19 16:50 Urine Nitrite Negative (NEGATIVE) 08/02/19 16:50 Urine Bilirubin Negative (NEGATIVE) 08/02/19 16:50 Urine Urobilinogen Normal (NORMAL) 08/02/19 16:50 Ur Leukocyte Esterase Negative (NEGATIVE) 08/02/19 16:50 Urine RBC 3-5 /HPF (0-3) A 08/02/19 16:50 Urine WBC 3-5 /HPF (0-5) 08/02/19 16:50 Ur Squamous Epith Cells Moderate /HPF (NEGATIVE) 08/02/19 16:50 Urine Bacteria Trace /HPF (NEGATIVE) 08/02/19 16:50 Urine Mucus Few /HPF (NEGATIVE) 08/02/19 16:50 Ur Culture Indicated? No/not indicated 08/02/19 16:50 Stool Description 12g,dk brn,unformed 08/02/19 20:10 Stool Description 12g,dk brn,unformed 08/02/19 20:10 Stl Occult Blood (IFOB) Positive (NEGATIVE) A 08/02/19 20:10 Stool for White Cells Negative (NEGATIVE) 08/02/19 20:10 Stl C. diff Tox B Gene Positive (NEGATIVE) A 08/02/19 20:10 Stl C. diff 027-NAP1-BI Negative (NEGATIVE) 08/02/19 20:10 C. difficile Toxin A&B Negative (NEGATIVE) 08/02/19 20:10 Cryptosporid parvum Ag Negative (NEGATIVE) 08/02/19 20:10 Giardia lamblia Ag Negative (NEGATIVE) 08/02/19 20:10 Tissue Pathology To follow 08/03/19 20:50 - Plan (1) C. difficile colitis Status: Acute Plan: CONTINUE ANTIBIOTIC THERAPY, CONTINUE TO MONITOR (2) Dysphagia Status: Acute Qualifiers: Dysphagia type: unspecified Qualified Code(s): R13.10 - Dysphagia, uns pecified (3) Nausea and vomiting Status: Acute Qualifiers: Vomiting type: unspecified Vomiting Intractability: intractable Qualified Code(s): R11.2 - Nausea with vomiting, unspecified
--- NOTE | 2019-09-17 17:21 | PCM.PROG ---
Progress Note - Progress Note for Day of Date of Exam: 08/05/19 - Subjective Subjective: WAS ADMITTED FOR PERSISTENT NAUSEA, VOMITING, AND ABDOMINAL PAIN. TODAY, SHE IS ALERT AND ORIENTED, LYING IN BED ON MORNING ROUNDS. SHE CONTINUES WITH COMPLAINTS OF ABDOMINAL PAIN, NAUSEA, AND VOMITING. HER VITALS THIS MORNING ARE: 98.0-62-18-100%-99/51. LABS WERE OBTAINED. ABNORMAL LAB VALUES INCLUDE THE FOLLOWING: HGB 11.9, HCT 34.7, POTASSIUM 3.3, BUN 4, GLUCOSE 103, AST 11, TOTAL PROTEIN 6.3, ALBUMIN 2.7. BLOOD AND STOOL CULTURES ARE PENDING. SHE IS CURRENTLY RECEIVING FLUIDS, IV ZOFRAN, CIPRO 400MG IV Q12H, FLAGYL 500MG IV Q8H, IV PROTONIX, IV MORPHINE, AND HOME MEDICATIONS WERE RESUMED. WE WILL CONTINUE WITH CURRENT PLAN OF CARE TODAY. OTHERWISE, WE WILL FOLLOW UP WITH AM LABS AND CONTINUE TO MONITOR. - Past Medical Family Social History Past Med/Fam/Surg Hx: No changes since H&P Allergies: Allergies No Known Drug Allergies Allergy (Verified 08/02/19 15:00) - Review of Systems ROS: No change since H&P - Vital Signs and I&O's Vital Signs: Temperature 98.3 F Pulse Rate [Right Brachial] 69 Pulse Rate [Left Brachial] 86 Pulse Rate 80 Respiratory Rate 18 Blood Pressure [Right Arm] 95/48 Blood Pressure [Left Arm] 93/51 Blood Pressure 110/61 O2 Sat by Pulse Oximetry 99 - Physical Exam Oriented: Normal Eyes: Normal Ear: Normal Nose: Normal Throat: Normal Respiratory: Normal Cardiovascular: Normal Auscultation: Bowel Sounds: Normal Tenderness: Diffuse (soft abdomen with diffuse tenderness , BS+) Skin: Normal Musculoskeletal: Normal Psychiatric: Anxiety Mood Description: Calm Speech Pattern: Clear, Appropriate - Laboratory and Diagnostics Result Diagrams: 08/06/19 05:47 08/06/19 05:47 Labs: 08/02/19 16:30 Blood Blood Culture - Final 08/02/19 16:23 Blood Blood Culture - Final 08/02/19 20:10 Stool Stool Culture - Final 08/02/19 20:10 Stool - Final Laboratory WBC 4.9 X10^3/uL (3.6-10.0) 08/06/19 05:47 RBC 4.12 X10^6/uL (3.5-5.4) 08/06/19 05:47 Hgb 12.3 g/dL (12.0-16.0) 08/06/19 05:47 Hct 36.5 % (36.0-47.0) 08/06/19 05:47 MCV 88.6 fL (80.0-100.0) 08/06/19 05:47 MCH 29.9 pg (27.0-34.0) 08/06/19 05:47 MCHC 33.7 g/dL (33.0-35.0) 08/06/19 05:47 RDW 12.5 % (11.6-16.5) 08/06/19 05:47 Plt Count 351 X10^3/uL (150.0-450.0) 08/06/19 05:47 MPV 7.8 fL (7.4-11.0) 08/06/19 05:47 Neut % (Auto) 55.6 % (42.0-75.0) 08/06/19 05:47 Lymph % (Auto) 27.9 % (21.0-51.0) 08/06/19 05:47 [place] % (Auto) 8.6 % (0.0-13.0) 08/06/19 05:47 Eos % (Auto) 7.0 % (0.9-2.9) H 08/06/19 05:47 Baso % (Auto) 0.9 % (0.2-1.0) 08/06/19 05:47 Neut # (Auto) 2.7 x10^3/uL (2.2-4.8) 08/06/19 05:47 Lymph # (Auto) 1.4 X10^3/uL (1.3-2.9) 08/06/19 05:47 [place] # (Auto) 0.4 x10^3/uL (0.3-0.8) 08/06/19 05:47 Eos # (Auto) 0.3 x10^3/uL (0.0-0.2) H 08/06/19 05:47 Baso # (Auto) 0.0 X10^3/uL (0.0-0.1) 08/06/19 05:47 Absolute Nucleated RBC 0.0 /100WBC 08/06/19 05:47 Sodium 142 mmol/L (136-145) 08/06/19 05:47 Corrected Sodium TNP 08/06/19 05:47 Potassium 3.7 mmol/L (3.5-5.1) 08/06/19 05:47 Chloride 108 mmol/L (98-107) H 08/06/19 05:47 Carbon Dioxide 26.9 mmol/L (21-32) 08/06/19 05:47 BUN 5 mg/dL (7-18) L 08/06/19 05:47 Creatinine 0.62 mg/dL (0.55-1.02) 08/06/19 05:47 Est GFR (MDRD) Af Amer > 60 (>60) 08/06/19 05:47 Est GFR (MDRD) Non-Af > 60 (>60) 08/06/19 05:47 Glucose 105 mg/dL (65-99) H 08/06/19 05:47 POC Glucose (mg/dL) 93 mg/dL (65-99) 08/03/19 11:38 Lactic Acid 0.9 mmol/L (0.4-2.0) 08/02/19 16:23 Calcium 8.8 mg/dL (8.5-10.1) 08/06/19 05:47 Corrected Calcium 9.8 mg/dL (8.5-10.1) 08/06/19 05:47 Magnesium 1.7 mg/dL (1.7-2.9) 08/05/19 05:20 Total Bilirubin 0.20 mg/dL (0.2-1.0) 08/06/19 05:47 AST 13 Units/L (15-37) L 08/06/19 05:47 ALT 15 Units/L (12-78) 08/06/19 05:47 Alkaline Phosphatase 54 Units/L (46-116) 08/06/19 05:47 Total Protein 6.2 g/dL (6.4-8.2) L 08/06/19 05:47 Albumin 2.7 g/dL (3.4-5.0) L 08/06/19 05:47 Globulin 3.5 g/dL (2.5-4.5) 08/06/19 05:47 Albumin/Globulin Ratio 0.8 Ratio (1.1-2.1) L 08/06/19 05:47 Amylase 42 Units/L (25-115) 08/03/19 04:33 Lipase 93 Units/L (73-393) 08/03/19 04:33 Specimen Type Clean catch urine 08/02/19 16:50 Urine Color Yellow (YELLOW) 08/02/19 16:50 Urine Appearance Hazy (CLEAR) 08/02/19 16:50 Urine pH 5.0 (5.0 - 8.0) 08/02/19 16:50 Ur Specific [place] 1.010 (1.000-1.030) 08/02/19 16:50 Urine Protein 1+ (NEGATIVE) 08/02/19 16:50 Urine Glucose (UA) Negative (NEGATIVE) 08/02/19 16:50 Urine Ketones Negative (NEGATIVE) 08/02/19 16:50 Urine Occult Blood 1+ (NEGATIVE) 08/02/19 16:50 Urine Nitrite Negative (NEGATIVE) 08/02/19 16:50 Urine Bilirubin Negative (NEGATIVE) 08/02/19 16:50 Urine Urobilinogen Normal (NORMAL) 08/02/19 16:50 Ur Leukocyte Esterase Negative (NEGATIVE) 08/02/19 16:50 Urine RBC 3-5 /HPF (0-3) A 08/02/19 16:50 Urine WBC 3-5 /HPF (0-5) 08/02/19 16:50 Ur Squamous Epith Cells Moderate /HPF (NEGATIVE) 08/02/19 16:50 Urine Bacteria Trace /HPF (NEGATIVE) 08/02/19 16:50 Urine Mucus Few /HPF (NEGATIVE) 08/02/19 16:50 Ur Culture Indicated? No/not indicated 08/02/19 16:50 Stool Description 12g,dk brn,unformed 08/02/19 20:10 Stool Description 12g,dk brn,unformed 08/02/19 20:10 Stl Occult Blood (IFOB) Positive (NEGATIVE) A 08/02/19 20:10 Stool for White Cells Negative (NEGATIVE) 08/02/19 20:10 Stl C. diff Tox B Gene Positive (NEGATIVE) A 08/02/19 20:10 Stl C. diff 027-NAP1-BI Negative (NEGATIVE) 08/02/19 20:10 C. difficile Toxin A&B Negative (NEGATIVE) 08/02/19 20:10 Cryptosporid parvum Ag Negative (NEGATIVE) 08/02/19 20:10 Giardia lamblia Ag Negative (NEGATIVE) 08/02/19 20:10 Tissue Pathology To follow 08/03/19 20:50 - Plan (1) C. difficile colitis Status: Acute Plan: CONTINUE ANTIBIOTIC THERAPY, CONTINUE TO MONITOR (2) Dysphagia Status: Acute Qualifiers: Dysphagia type: unspecified Qualified Code(s): R13.10 - Dysphagia, unspecified (3) Nausea and vomiting Status: Acute Qualifiers: Vomiting type: unspecified Vomiting Intractability: intractable Qualified Code(s): R11.2 - Nausea with vomiting, unspecified
== END 2019-08-06 11:40 | disposition home or self-care (01) ==
LOC: MED/SURG
PROVIDERS: ADMIT Internal Medicine; ATTEND Internal Medicine
PROC: APPYLAP (ICD-10-PCS; 2019-08-03 19:45)
DX: R53.83 Other fatigue; R10.11 Right upper quadrant pain; K20.9 Esophagitis, unspecified; R19.7 Diarrhea, unspecified; R41.840 Attention and concentration deficit; R13.11 Dysphagia, oral phase; R11.2 Nausea with vomiting, unspecified; J30.9 Allergic rhinitis, unspecified; K29.00 Acute gastritis without bleeding; A04.72 Enterocolitis due to Clostridium difficile, not specified as recurrent; R10.84 Generalized abdominal pain; R10.13 Epigastric pain
CPT/HCPCS: 36415; 71010; 71045; 74177; 76705; 80053; 81001; 82150; 82270; 83605; 83630; 83690; 83735; 84132; 85025; 87040; 87045; 87324; 87328; 87329; 87427; 87449; 87493; 87899; 93005; 96367; A4216; A4222; C9113; S0030; G0378; J0330; J0690; J0744; J1170; J2250; J2405; J2543; J2704; J2710; J3010; J3490; J7030; J7050; J7120; S5010